=== PATIENT | female | born 1980 | race Caucasian/White ===

== ENCOUNTER → 2017-05-30 | Outpatient (CLI) | payer BC ==
[~2017-05-30] MED LIST: IBUP600T44 PO; LEVO75TA36 PO; PRENTAB26 PO
--- NOTE | 2017-05-30 11:48 | DIAGNOSTIC IMAGING REPORT ---
TWO VIEW CHEST CLINICAL HISTORY: Atypical chest pain. FINDINGS: PA and lateral chest radiographs are obtained. No prior studies are available for comparison at the time of dictation. The cardiomediastinal silhouette is unremarkable. The lungs and pleural spaces are clear. There is no pneumothorax. The bony thorax appears intact. There is mild to moderate S-shaped thoracolumbar scoliosis. IMPRESSION: No active disease in the chest. Electronically signed by: Primo Gallegos M.D. 05/30/2017 11:47 AM Dictated Date/Time: 05/30/2017 11:46 AM
== END | disposition home or self-care (01) ==
LOC: C.RAD1850 11:09
PROVIDERS: ATTEND Physician Assistant
DX: R07.89 Other chest pain (principal)